=== PATIENT | male | born 1990 | race Caucasian/White ===

== ENCOUNTER 2023-06-07 20:21 | Emergency (ER) | payer OTHER ==
[2023-06-07] MEDS ORDERED: Acetaminophen 500 MG Tab PO ONE (21:02)
[2023-06-07 21:16] LABS: BASOPHILS ABSOLUTE AUTO 0.04 K/uL (0.00-0.10); BASOPHILS PERCENT AUTO 0.3 % (0.1-1.3); EOSINOPHILS PERCENT AUTO 0.1 % (0.0-5.4); HEMATOCRIT 46.1 % (38.4-49.7); HEMOGLOBIN 16.2 g/dL (12.9-16.9); IMMATURE GRAN ABSOLUTE AUTO 0.05 K/uL (0.00-0.23); IMMATURE GRAN PERCENT AUTO 0.4 % (0.0-0.7); LYMPHOCYTES ABSOLUTE AUTO 0.42 K/uL (0.8-3.3); LYMPHOCYTES PERCENT AUTO 3.3 % (11.4-47.7); MEAN CORPUSCULAR HEMOGLOBIN 30.7 pg (31.6-35.5); MEAN CORPUSCULAR HGB CONC 35.1 g/dL (31.6-35.5); MEAN CORPUSCULAR VOLUME 87.5 fL (81.4-99.0); MONOCYTES ABSOLUTE AUTO 0.75 K/uL (0.20-0.90); MONOCYTES PERCENT AUTO 5.9 % (3.3-12.6); NEUTROPHILS ABSOLUTE AUTO 11.51 K/uL (1.0-7.6); PLATELET COUNT,PLT 185 K/uL (130-375); RED BLOOD CELL COUNT 5.27 M/uL (4.14-5.76); WHITE BLOOD CELL COUNT,WBC 12.8 K/uL (3.2-11.0)
[2023-06-07 21:17] LABS: EOSINOPHILS ABSOLUTE AUTO 0.01 K/uL (0.00-0.40)
[2023-06-07] MEDS ORDERED: Sodium Chloride 0.9% 10 ML Syringe FLUSH PRN (21:17)
[2023-06-07] MEDS ORDERED: Ketorolac 30 MG/ML SDV IVPUSH ONE (21:17)
[2023-06-07] MEDS ORDERED: droPERidol 5 MG/2 ML SDV IVPUSH ONE (21:17)
[2023-06-07] MEDS ORDERED: Sodium Chloride 0.9% 1,000 ML IV ONE (21:18)
[2023-06-07] MEDS ORDERED: Iopamidol 612 MG/ML 100 ML Bottle IV SCH (21:30)
[2023-06-07] MEDS ORDERED: Sodium Chloride 0.9% 50 ML IV SCH (21:30)
[2023-06-07 21:38] LABS: ALANINE AMINOTRANSFERASE,ALT 25 U/L (12-78); ALBUMIN 3.3 g/dL (3.4-5.0); ALKALINE PHOSPHATASE 82 U/L (46-116); ASPARTATE AMNIOTRANSFERASE,AST 24 U/L (15-37); BILIRUBIN TOTAL 0.7 mg/dL (0.2-1.0); BLOOD UREA NITROGEN,BUN 7 mg/dL (7-18); CALCIUM 8.5 mg/dL (8.5-10.1); CARBON DIOXIDE,CO2 28 mmol/L (21-32); CHLORIDE,CL 100 mmol/L (100-108); CREATININE 1.2 mg/dL (0.8-1.3); EST CRCL DRUG DOSING (CG) 90.01 mL/min; ESTIMATED GFR 83 mL/min (>60); GLUCOSE RANDOM 113 mg/dL (74-106); POTASSIUM,K 3.2 mmol/L (3.6-5.2); PROTEIN TOTAL,TP 6.7 g/dL (6.4-8.2); SODIUM,NA 136 mmol/L (140-148)
[2023-06-07 21:39] LABS: ANION GAP 11.2 mmol/L (5.0-14.0)
[2023-06-07 21:45] LABS: LACTIC ACID 1.1 mmol/L (0.4-2.0)
[2023-06-07] MEDS ORDERED: Potassium Chloride 20 MEQ Tab.ER PO ONE (21:59)
[2023-06-07 22:01] LABS: LYME AB IgG Negative (Negative); LYME AB IgM Negative (Negative)
[2023-06-07 22:14] LABS: APPEARANCE,URINE CLEAR (CLEAR); BILIRUBIN,URINE NEGATIVE (NEGATIVE); COLOR,URINE YELLOW (YELLOW); GLUCOSE,URINE NEGATIVE (NEGATIVE); KETONES,URINE 40 mg/dL (NEGATIVE); LEUKOCYTE ESTERASE,URINE NEGATIVE (NEGATIVE); NITRITE,URINE NEGATIVE (NEGATIVE); OCCULT BLOOD,URINE TRACE-LYSED (NEGATIVE); PROTEIN,URINE NEGATIVE (NEGATIVE); UROBILINOGEN,URINE 0.2 EU/dL (0.2-1.0)
[2023-06-07 22:22] LABS: AMORPHOUS SEDIMENT,URINE NOT SEEN; BACTERIA,URINE RARE; EPITHELIAL CELLS,URINE RARE; MUCUS,URINE RARE; RBC,URINE 0-5 (0-5); WBC,URINE 0-5 (0-5)
== END 2023-06-07 23:34 | disposition home or self-care (01) ==
LOC: JP.ED 20:21
DX: A09 Infectious gastroenteritis and colitis, unspecified (principal); E87.6 Hypokalemia; R50.9 Fever, unspecified; F17.210 Nicotine dependence, cigarettes, uncomplicated; Z86.16 Personal history of COVID-19; Z20.822 Contact with and (suspected) exposure to COVID-19
CPT/HCPCS: 36415; 74177; 80053; 81001; 83605; 83690; 85025; 86140; 86618; 87635; 96361; 96374; 96375; 99284; A9270; J1790; J1885; J3490; J7030; Q9967; U0002